=== PATIENT | female | born 1980 | race Hispanic/Latino ===

== ENCOUNTER 2017-07-09 13:22 | Emergency (ER) | payer BC ==
[2017-07-09 13:40] VITALS: TEMP 98.2; O2SAT 100
[2017-07-09] MEDS ORDERED: Sodium Chloride 0.9% 1,000 ML IV SCH (14:00)
[2017-07-09] MEDS ORDERED: Sodium Chloride 0.9% 1,000 ML IV STA ×2 (14:20)
--- NOTE | 2017-07-09 14:22 | ED PDOC ---
HPI: Chest Pain Time Seen by Provider: 07/09/17 13:39 Chief Complaint (Nursing): Weakness/Neurological Deficit Chief Complaint (Provider): Chest Pain with shortness of breath History Per: Patient History/Exam Limitations: no limitations Onset/Duration Of Symptoms: Hrs (x4) Current Symptoms Are (Timing): Still Present Additional Complaint(s): Janelle Whitehead is a 37 year old female presenting to the ED for an evaluation of chest pain. The patient states she thinks she is having a heart attack. 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 She was working at home today and reports taking a break around noon to lie down when she started to experience difficulty breathing and vague discomfort in her chest, upper-lateral areas. She also states experiencing numbness in her left arm. She reports having anxiety/panic attacks in the past, work is very stressful stating that if she loses commission her job will be cut, and also has had a miscarriage in April which contributes to her stress. She also reports taking 2 Aspirins before presenting to the ED, exercises regularly for marathons, and travels a lot for work. She denies any calf tenderness, swelling , nausea, vomiting, or dizziness. PMD: None Provided Past Medical History Reviewed: Historical Data, Nursing Documentation, Vital Signs Vital Signs: Last Vital Signs Temp 98.2 F 07/09/17 13:28 Pulse 88 07/09/17 14:29 Resp 16 07/09/17 13:28 BP 149/89 07/09/17 13:28 Pulse Ox 100 07/09/17 14:29 - Medical History PMH: No Chronic Diseases - Surgical History Surgical History: No Surg Hx - Family History Family History: States: Unknown Family Hx - Social History Current smoker - smoking cessation education provided: No Ex-Smoker (has not smoked in the last 12 months): No Drugs: Denies - Allergies Allergies/Adverse Reactions: Allergies Allergy/AdvReac Type Severity Reaction Status Date / Time No Known Allergies Allergy Verified 07/09/17 13:28 Review of Systems ROS Statement: Except As Marked, All Systems Reviewed And Found Negative Constitutional: Positive for: Malaise (feels heavy/tired) Cardiovascular: Positive for: Chest Pain Respiratory: Positive for: Shortness of Breath Gastrointestinal: Negative for: Nausea, Vomiting Musculoskeletal: Negative for: Leg Pain (no calf tenderness/swelling) Neurological: Positive for: Numbness (in left arm ). Negative for: Dizziness Physical Exam - Reviewed Nursing Documentation Reviewed: Yes Vital Signs Reviewed: Yes - Physical Exam Appears: Positive for: Non-toxic, No Acute Distress Head Exam: Positive for: ATRAUMATIC, NORMOCEPHALIC Skin: Positive for: Normal Color, Warm, Dry. Negative for: Cyanosis Eye Exam: Positive for: Normal appearance, EOMI ENT: Positive for: Other (lips/tongue are dry) Neck: Positive for: Normal, Painless ROM, Supple Cardiovascular/Chest: Positive for: Regular Rate, Rhythm. Negative for: Murmur Respiratory: Positive for: Normal Breath Sounds. Negative for: Respiratory Distress Gastrointestinal/Abdominal: Positive for: Normal Exam, Soft. Negative for: Tenderness Back: Positive for: Normal Inspection Extremity: Negative for: Calf Tenderness, Swelling (no calf swelling), Other ( negative Homans sign bilaterally) Neurologic/Psych: Positive for: Alert, Oriented (x3). Negative for: Motor/ Sensory Deficits - Laboratory Results Result Diagrams: 07/09/17 14:20 07/09/17 14:20 - ECG ECG: Positive for: Interpreted By Me, Viewed By Me ECG Rhythm: Positive for: Normal QRS. Negative for: ST/T Changes Rate: 88 O2 Sat by Pulse Oximetry: 100 (RA) Pulse Ox Interpretation: Normal Medical Decision Making Medical Decision Making: Time: 13:39 Impression: Chest pain, shortness of breath Differential: atypical chest pain vs cardiac chest pain. Rule out myocardial ischemia, PE, and anxiety Plan: * ED ekg * CMP * Troponin I * CBC (with differential) * D Dimer [COAG] * NS 0.9% 1,000 mls IV 1,000 mls/hr * [RAD] Chest Two Views (PA/LAT) * Reevaluation Scribe Attestation: Documented by Ingrid Granados, acting as a scribe for Adwoa Terry MD. Provider Scribe Attestation: All medical record entries made by the Scribe were at my direction and personally dictated by me. I have reviewed the chart and agree that the record accurately reflects my personal performance of the history, physical exam, medical decision making, and the department course for this patient. I have also personally directed, reviewed, and agree with the discharge instructions and disposition. Disposition - Clinical Impression Clinical Impression: Chest pain - Patient ED Disposition Is Patient to be Admitted: Transfer of Care - Disposition Disposition: Transfer of Care Disposition Time: 14:59 Condition: GUARDED Forms: [employer] (Vincentian) Patient Signed Over To: Anna Merrill Present On Arrival: None
[2017-07-09 14:33] LABS: BASO # 0.1 K/uL (0.0-0.2); BASO % 0.8 % (0.0-2.0); EOS # 0.1 K/uL (0.0-0.7); EOS % 0.8 % (0.0-4.0); LYMPH # 2.3 K/uL (1.0-4.3); LYMPH % 32.5 % (20.0-40.0); MEAN CELL VOLUME 88.1 fl (81.0-99.0); MEAN CORPUSCULAR HEMOGLOBIN 29.4 pg (27.0-31.0); MEAN CORPUSCULAR HGB CONC 33.4 g/dL (33.0-37.0); MEAN PLATELET VOLUME 8.6 fl (7.2-11.7); MONO # 0.6 K/uL (0.0-0.8); MONO % 8.1 % (0.0-10.0); NEUT # 4.1 K/uL (1.8-7.0); NEUT % 57.8 % (50.0-75.0); RED CELL DISTRIBUTION WIDTH 13.5 % (11.5-14.5); WHITE BLOOD COUNT 7.1 K/uL (4.8-10.8)
[2017-07-09 14:47] LABS: ALB/GLOB RATIO 1.6 (1.0-2.1); ALKALINE PHOSPHATASE 59 U/L (38-126); ALT/SGPT 36 U/L (9-52); AST/SGOT 32 U/L (14-36); BILIRUBIN,TOTAL 0.5 mg/dl (0.2-1.3); BLOOD UREA NITROGEN 10 mg/dl (7-17); CARBON DIOXIDE 25 mmol/L (22-30); CHLORIDE 106 mmol/L (98-107); GFR AFRICAN-AMERICAN > 60; GLUCOSE,RANDOM 93 mg/dL (65-105); POTASSIUM 4.2 MMOL/L (3.6-5.0); SODIUM 139 mmol/l (132-148); TOTAL PROTEIN 6.9 G/DL (6.3-8.2)
--- NOTE | 2017-07-09 15:15 | ED PDOC ---
- Laboratory Results Result Diagrams: 07/09/17 14:20 07/09/17 14:20 Interpretation Of Abn Labs: No clinically significant lab abnormalities - ECG ECG: Positive for: Interpreted By Me ECG Rhythm: Positive for: Normal QRS, Normal ST Segment, Sinus Rhythm O2 Sat by Pulse Oximetry: 100 (RA) Pulse Ox Interpretation: Normal - Radiology X-Ray: Interpreted by Me X-Ray Interpretation: No Acute Disease - Progress ED Course And Treament: 3p Rec'd endorsement from Dr Terry. Pt pending troponin and reevaluation 305p Troponin normal. DW pt findings. Pt to rest and follow up with PMD on Wednesday. Stable for discharge. Re-evaluation Time: 15:00 Condition: Improved Disposition Counseled Patient/Family Regarding: Studies Performed, Diagnosis, Need For Followup - Clinical Impression Clinical Impression: Chest pain, Stress - POA Present On Arrival: None - Disposition Referrals: [facility] [Outside] (FOLLOW UP WITH YOUR DOCTOR OR [facility] IN 2-3 DAYS TO SEE HOW YOU ARE DOING.) Disposition: Routine/Home Disposition Time: 15:05 Condition: GOOD Instructions: Stress (ED), Noncardiac Chest Pain (ED) Forms: Hang w/ (Urdu), [facility] ED School/Work Excuse
--- NOTE | 2017-07-09 15:35 | RAD ---
HISTORY: chest pain COMPARISON: No prior study available for comparison TECHNIQUE: Chest PA and lateral FINDINGS: LUNGS: No active pulmonary disease. PLEURA: No significant pleural effusion identified. No pneumothorax apparent. CARDIOVASCULAR: Normal. OSSEOUS STRUCTURES: No significant abnormalities. VISUALIZED UPPER ABDOMEN: Normal. OTHER FINDINGS: None. IMPRESSION: No active disease.
[2017-07-09 16:08] VITALS: BP 128/93; PULSE 84; RESP 18
--- NOTE | 2017-07-10 06:35 | CARD ---
APPROVED REPORT EKG Measurement Heart [id number] <Conclusion> Normal sinus rhythm with sinus arrhythmia Normal ECG
== END 2017-07-09 16:15 | disposition home or self-care (01) ==
LOC: H.ER 13:22
DX: R07.89 Other chest pain (principal); F43.0 Acute stress reaction
CPT/HCPCS: 71020; 80053; 81025; 82948; 84484; 85025; 85378; 93005; 96360; 96361; 99284; J7040